=== PATIENT | male | born 1970 | race Caucasian/White ===

== ENCOUNTER → 2018-11-11 | Outpatient (CLI) | payer BC ==
--- NOTE | 2018-11-11 15:18 | XR ---
EXAMINATION TYPE: XR chest 2V DATE OF EXAM: 11/11/2018 COMPARISON: None HISTORY: 47-year-old male presurgical testing TECHNIQUE: Frontal and lateral views FINDINGS: The cardiomediastinal silhouette, aorta, and pulmonary vasculature are within normal limits. Mild hyp erinflation. Lungs and pleural spaces are clear. IMPRESSION: Mild hyperinflation may relate to depth of inspiration or underlying emphysema. No acute cardiopulmon mykel process.
== END | disposition home or self-care (01) ==
LOC: RADXRMAIN 10:16
PROVIDERS: ATTEND Orthopaedic Surgery Orthopaedic Surgery of the Spine
DX: Z01.818 Encounter for other preprocedural examination (principal); R91.8 Other nonspecific abnormal finding of lung field; M48.07 Spinal stenosis, lumbosacral region; Z01.812 Encounter for preprocedural laboratory examination
CPT/HCPCS: 71046; 87070

== ENCOUNTER 2018-11-17 07:28 | Inpatient (IN) | payer BC ==
[~2018-11-17 07:28] MED LIST: BACITRACIN 50,000 UNIT, POLYMYXIN B 500,000 UNIT in SODIUM CHLORIDE 0.9% IRRIGATIO 1,00... IRRIGATION ONE; DEXAMETHASONE SOD PHOSPHATE 10 MG/ML 1 ML VIAL IV ONE; LIDOCAINE 1% 20 ML VIAL (10MG/ML) FOR IV START INTRADERMA PRN; MIDAZOLAM 2 MG/2 ML VIAL IV PRN; ONDANSETRON 4 MG/2 ML VIAL IVP ONE; SCOPOLAMINE 1.5MG/72HR PATCH TRANSDERM ONE; ceFAZolin IN SWFI 2 GM/20 ML SYRINGE IVP ONE
[2018-11-17] MEDS: LACTATED RINGERS 1,000 ML IV SCH (08:02)
[2018-11-17] MEDS ORDERED: MIDAZOLAM 2 MG/2 ML VIAL ONE (08:27)
[2018-11-17] MEDS ORDERED: PROPOFOL 10 MG/ML 20 ML VIAL IV ONE (08:27)
[2018-11-17] MEDS ORDERED: NEOSTIGMINE 1 MG/ML 10 ML VIAL ONE (08:27)
[2018-11-17] MEDS ORDERED: HEPARIN SODIUM,PORCINE 10,000 UNIT/ML 1 ML VIAL ONE (08:27)
[2018-11-17] MEDS ORDERED: ROCURONIUM BROMIDE 10 MG/ML 10 ML VIAL IV ONE (08:27)
[2018-11-17] MEDS ORDERED: GLYCOPYRROLATE 0.2 MG/ML 2 ML VIAL ONE (08:27)
[2018-11-17] MEDS ORDERED: LACTATED RINGERS 1,000 ML BAG IV ONE (08:27)
[2018-11-17] MEDS ORDERED: SUCCINYLCHOLINE CHLORIDE 100 MG/5 ML SYR IV ONE (08:27)
[2018-11-17] MEDS ORDERED: LIDOCAINE 1% INJ 10MG/ML (20 ML MDV) ONE (08:27)
[2018-11-17] MEDS ORDERED: fentaNYL (PF) 50 MCG/ML 2 ML AMP ONE (08:27)
[2018-11-17] MEDS ORDERED: PHENYLEPHRINE-0.9% NACL SYG 1 MG/10 ML SYRINGE ONE (08:27)
[2018-11-17] MEDS ORDERED: LIDOCAINE 0.5%-EPI 1:200,000 50 ML VIAL SQ ONE (09:10)
[2018-11-17] MEDS ORDERED: BACITRACIN 50,000 UNIT, POLYMYXIN B 500,000 UNIT in SODIUM CHLORIDE 0.9% IRRIGATIO 1,00... IRRIGATION ONE (09:24)
[2018-11-17] MEDS ORDERED: GELATIN SPONGE,ABSORB (LARGE) 1 EACH SPONGE TOPICAL ONE (10:09)
[2018-11-17] MEDS ORDERED: THROMBIN (BOVINE) 5,000 UNIT VIAL TOPICAL ONE (10:09)
[2018-11-17] MEDS ORDERED: LACTATED RINGERS 1,000 ML IV ONE (10:33)
--- NOTE | 2018-11-17 12:15 | XR ---
Fluoroscopy History: Lumbar surgery 1 min 40 sec fl time, Lumbar done with Pasia. 6 images scanned
[2018-11-17] MEDS ORDERED: ONDANSETRON 4 MG/2 ML VIAL IVP PRN (12:26)
[2018-11-17] MEDS ORDERED: HYDROcodone/APAP 5-325MG 1 EACH TAB PO PRN ×2 (12:26)
[2018-11-17] MEDS ORDERED: HYDROmorphone 0.5 MG/0.5 ML SYRINGE IVP PRN (12:26)
[2018-11-17] MEDS ORDERED: HYDROmorphone 1 MG/ML 1 ML SYRINGE IVP PRN (12:26)
[2018-11-17] MEDS ORDERED: BENZOCAINE/MENTHOL LOZENG 1 EACH LOZENGE MUCOUS MEM PRN (12:26)
[2018-11-17] MEDS: HYDROmorphone 0.5 MG/0.5 ML SYRINGE IVP PRN ×3 (12:29→12:40)
--- NOTE | 2018-11-17 12:39 | P.OP ---
Date of Procedure: 11/17/18 Preoperative Diagnosis: Spinal stenosis L4 5 L5-S1, retrolisthesis L5-S1, disc herniation L5-S1 L4 5, lower sternal radiculopathy, low back pain and degenerative disc disease L4 5 L5-S1 Postoperative Diagnosis: Same Anesthesia: GETA Pathology: none sent Condition: stable Disposition: PACU Description of Procedure: DESCRIPTION OF PROCEDURE(S): BRIEF OPERATIVE NOTE Preoperative Diagnosis: Spinal stenosis L4 5 L5-S1, retrolisthesis L5-S1, disc herniation L5-S1 L4 5, lower sternal radiculopathy, low back pain and degenerative disc disease L4 5 L5-S1 Postoperative Diagnosis: Same Procedure: Laminectomy and decompressionL4 5 L5-S1 Minimally invasive Posterior lateral decompression and fusionL4 5 L5-S1 Minimally invasive Transforaminal lumbar interbody fusion for a 360 fusionL4 5 L5-S1 Discectomy for decompressionL4 5 L5-S1 Placement of interbody graftL4 5 L5-S1 Local autogenous bone grafting Harvesting of bone marrow aspirate be of the pedicle of L4 Use of Cell Saver Use of bone graft extenders Surgeon: Dr. Boone Manager Heavy Duty: Vivek Sung is present throughout the entire the case persistence during positioning, dissection, exposure, visualization, and all crucial elements of the case as well as closure. Anesthesia: General anesthesia per Dr. Pimentel Estimated blood loss: Approximately 100 mL Complications: None apparent Components implanted:K2M minimally invasive [place] pedicle screw system with 6.5 mm screws 2 rods and 1 [place] expandable 9-12 cage and 1 [place] titanium cage with 1 osteoamp sponge and 30 mL DBX bone fibers to supplemental local autogenous and bone marrow aspirate graft Disposition: To recovery room in good stable condition. OPERATIVE INDICATIONS The patient has had long-standing issues in their lower back and lower extremities. He has had long history of low back pain with lower extremity radicular symptoms. He has been through extensive conservative treatment over the years. He has been involved with pain management as well. He was having worsening of his back pain and his lower extremity radiculopathy was having some evidence of dynamic retrolisthesis at L5-S1 with significant disc degeneration and stenosis L4 5 and L5-S1. The symptoms correlated well with the findings and we discussed further treatment including surgical options. The patient has been through conservative treatment. We discussed various treatment options including surgery, and the patient wishes to proceed with surgery We discussed the risk, patient's alternatives and benefits of surgery including but not limited to, risk of bleeding risk of infection, risk of need for further surgery, risk of decreased, loss of motion, muscle function, malunion nonunion, hardware failure, nerve damage, paralysis, heart attack, blindness and . OPERATIVE SUMMARY After discussing all the risks, patient alternatives and benefits at length, the patient elected to proceed with surgical intervention, signed informed consent, and presented for their procedure. The patient was seen and examined in the preoperative holding area and the surgical site was marked. The patient was given antibiotics and brought to the operating room. The patient was sedated and intubated by anesthesia in standard fashion. The patient was positioned on to the operating room table in a prone position on the appropriate frame which was well-padded and well molded. We were careful to pad any bony prominences and pressure points. We were careful to maintain the patient's cervical spine and good neutral alignment and position throughout. The patient was prepped and draped in a normal standard fashion. An appropriate timeout and keystone protocol performed. We were able to proceed with the surgery. The local wound area was infiltrated with local anesthetic bilaterally from L 4 to S1. I was able utilize C-arm guidance to establish appropriate position over the pedicles bilaterally at the appropriate levels at L4 5 L5-S1. With the appropriate levels confirmed was able to make small stab incisions over the appropriate pedicle sites bilaterally. Utilizing C-arm in his house able to establish a Jamshidi needle over the lateral aspect of the pedicle and advanced the trocar into the pedicle being careful not to breech superiorly inferiorly medially or laterally. Position was confirmed regularly with AP and lateral images on C-arm. I was able to establish the trocar into the pedicle appropriately into the posterior aspect of the vertebral body bilaterally at the appropriate levels at L4 5 L5-S1. This was done at each of the pedicle positions and each of the vertebrae. At L4 on the right I did take a bone marrow aspirate approximately 20 mL to be used for the grafting. I was able place the guidewire into the trocar and into the vertebral body appropriately under C-arm guidance. Dissection was taken down over the wire to the appropriate starting position for the screw placed. The appropriate length screw was chosen, threaded over the guidewire and screwed appropriately into the pedicle and vertebral body under C-arm guidance in excellent alignment and position with good bony purchase. This is done at each of the screw sites at the appropriate levels at L4 5 and S1. With the screws intact I extended the incision to connect the screw hole sites on the most symptomatic side on the right. I dissected down to establish access over the pars and lamina to the base of the spinous process. I was able to expose the facet joint. The capsule the facet was taken down and showed some facet arthrosis at the joint. I was able to use a combination of curettes and Kerrison rongeurs and a high-speed drill to take down the facet joint and do a facetectomy. Partial laminectomy was also performed. I was able get excellent foraminal decompression and central decompression with undermining across midline to perform a laminectomy centrally and contralaterally. As able get good central decompression. The ligamentum flavum was taken down to further decompress centrally and at bilateral neural foramen. I was able to expose the disc space and visualize the traversing nerve root. Note was made of some disc protrusion at the level causing further compression of the nerve root. I was able to establish a annulotomy at the appropriate level protecting soft tissue and neural structures. Note was made of some disc desiccation at the disc. I performed a complete discectomy with accommodation of curettes and rasps and scrapers. The discectomy provided endplate preparation as well as further decompression. I was able get good endplate preparation at the disc space. I sized for the appropriate size interbody spacer protecting the soft tissue and neural structures. The wound was copiously irrigated and suctioned dry. There is no evidence of any dural tear or leak. This is done first at L5-S1 and then at L4 5 I was able to pack the disc space with local autogenous bone graft as well as a small amount of bone graft which was also placed into the interbody cage itself. Protecting the soft tissue structures and neural structures I was able place the interbody cage in good alignment and good position with good fit and fill at the interbody space at L5-S1 and at L4 5. His issues was confirmed with C-arm guidance. At L5-S1 I was able to use a 1 piece titanium interbody spacer. Then L4 5 he had a larger disc height and I chose to use a expandable cage for good fit and fill within the interbody space. Good hemostasis maintained. There is no evidence of any dural tear or leak. The wound was irrigated and suctioned dry. With the hardware intact, intraoperative C-arm imaging was again taken which showed good alignment and position of the hardware at the appropriate levels. We were then able to measure, contour and place the rods and appropriate hardware bilaterally. I was able to place capcrews, tighten them down, and torque them with the torque screwdriver appropriately. With this intact I was able to place the local autogenous bone graft with additional bone graft enhancer as necessary into the posterior lateral gutters over the decorticated transverse processes. The remainder of the bone graft was placed over the facet joint on the contralateral side after taking down the facet joint capsule at L4 5 and L5-S1. With the bone graft intact, a stable construct, and good decompression at the appropriate levels, we were able to proceed with closure. Good hemostasis was maintained. There is no evidence of dural tear or leak. The fascia was closed for a watertight closure. he subcuticular tissue was closed with absorbable suture. The wound was cleaned and dried and dressed with the appropriate dressing. The drapes were broken down. The patient was gently rolled back onto their hospital bed being careful to maintain their cervical spine and good neutral alignment and position. They were woken up by anesthesia, extubated, and brought to the recovery room in good stable condition. The patient will be admitted to the hospital for appropriate postoperative care, medical management and monitoring. We will continue to follow them closely about the postoperative course.
[2018-11-17] MEDS: fentaNYL (PF) 50 MCG/ML 2 ML AMP IVP ONE ×2 (13:12→13:15)
[2018-11-17] MEDS: MORPHINE SULFATE ER 30 MG TABLET PO PRN (14:23)
[2018-11-17] MEDS ORDERED: HYDROmorphone 1 MG/ML 1 ML SYRINGE IVP STA (14:57)
[2018-11-17] MEDS: DIAZEPAM 5 MG TAB PO PRN ×2 (15:06→21:37)
[2018-11-17] MEDS: ceFAZolin IN SWFI 2 GM/20 ML SYRINGE IVP SCH ×2 (15:08→23:38)
[2018-11-17] MEDS ORDERED: cloNIDine HCL 0.1 MG TAB PO PRN (15:57)
--- NOTE | 2018-11-17 17:21 | CONS ---
CONSULTATION DATE OF SERVICE: 11/17/2018 REASON FOR CONSULTATION: Advice regarding hypertension and other medical issues, requested by Dr. Boone. HISTORY OF PRESENT ILLNESS: This 47-year-old gentleman with a past medical history of hypertension, back pain, history of hernia repair, cervical fusion, being followed by Vanna Koch in the outpatient setting, underwent laminectomy and decompression of L4-5, L5-S1 and multiple other procedures by Dr. Boone. Postoperatively the patient is complaining of severe pain. There is no history of any fever, rigor or chills. No history of headache, loss of consciousness, seizures. The blood pressure was also elevated at 172/113. PAST MEDICAL HISTORY: 1. History of hypertension. 2. History of DJD. 3. History of cervical fusion x2. HOME MEDICATIONS: 1. Requip 5 mg p.o. at bedtime. 2. MS Contin 30 mg q.8 p.r.n. 3. Zestril 10 mg p.o. daily. 4. Motrin 600 mg daily p.r.n. ALLERGIES: NONE. FAMILY HISTORY: Ovarian cancer in the family. SOCIAL HISTORY: History of smoking. No history of alcohol intake. REVIEW OF SYSTEMS: ENT: No diminished hearing. No diminished vision. CARDIOVASCULAR SYSTEM: No angina, palpitations. RESPIRATORY SYSTEM: No cough, hemoptysis. GI: No nausea, vomiting. : No dysuria or retention. NERVOUS SYSTEM: No numbness, weakness. ALLERGY/IMMUNOLOGY: No asthma, hayfever. MUSCULOSKELETAL: As mentioned earlier. HEMATOLOGY/ONCOLOGY: No history of anemia. ENDOCRINE: No history of diabetes, hypothyroidism. CONSTITUTIONAL: As mentioned earlier. DERMATOLOGY: Negative. RHEUMATOLOGY: Negative. PSYCHIATRY: As mentioned earlier. PHYSICAL EXAMINATION: Patient is alert and oriented x3. Pulse 62, blood pressure 131/79, respiration 12, temperature 98 degrees, pulse ox 100% on room air. HEENT: Conjunctivae normal. Oral mucosa moist. NECK: No jugular venous distention. No carotid bruit. No lymph node enlargement. CARDIOVASCULAR SYSTEM: S1, S2 muffled. RESPIRATORY SYSTEM: Breath sounds diminished at the bases. No rhonchi. No crackles. ABDOMEN: Soft, non-tender. No mass palpable. LEGS: No edema. No swelling. NERVOUS SYSTEM: Higher functions as mentioned earlier. Moves all 4 limbs. No focal motor or sensory deficit. BACK: Status post surgery. SKIN: No ulcer, rash, bleeding. JOINTS: No active deforming arthropathy. LABS: Not available. ASSESSMENT: 1. Status post laminectomy and decompression of L4-5, L5-S1 for spinal stenosis, L4-5, L5-S1, and retrolisthesis, L5-S1, and disc herniation. 2. Hypertension. 3. History of back pain, degenerative joint disease. 4. History of cervical fusion. 5. History of umbilical hernia. 6. History of nicotine dependence. RECOMMENDATIONS AND DISCUSSION: In this 47-year-old gentleman who presented with multiple medical issues, I would recommend continuing the current medication. Continue symptomatic treatment. Pain management. DVT prophylaxis. Incentive spirometry. I would also recommend p.r.n. medication for blood pressure control. Lisinopril may be continued. We will follow the patient closely with you. Baseline labs are also ordered. Thank you, Dr. Boone, for letting us participate in the care of this patient. MMODL / IJN: [id number] /
[2018-11-17] MEDS: HYDROmorphone 1 MG/ML 1 ML SYRINGE IVP PRN ×2 (18:20→21:37)
[2018-11-17] MEDS: SODIUM CHLORIDE 0.9% 1,000 ML IV SCH ×2 (18:27→23:38)
[2018-11-17] MEDS ORDERED: CALCIUM CARBONATE 500 MG CHEWABLE PO PRN (23:02)
[2018-11-18] MEDS: HYDROmorphone 1 MG/ML 1 ML SYRINGE IVP PRN ×3 (00:40→18:24)
[2018-11-18] MEDS: MORPHINE SULFATE ER 30 MG TABLET PO PRN (02:28)
[2018-11-18] MEDS: DIAZEPAM 5 MG TAB PO PRN (02:28)
[2018-11-18] MEDS ORDERED: HYDROmorphone 1 MG/ML 1 ML SYRINGE IVP PRN (02:49)
[2018-11-18] MEDS: KETOROLAC 30 MG/ML 1 ML VIAL IVP PRN ×4 (03:04→20:03)
[2018-11-18] MEDS: LACTATED RINGERS 1,000 ML IV SCH (04:56)
--- NOTE | 2018-11-18 08:22 | P.PN ---
Progress Note - Text Progress Note Date: 11/18/18 Postoperative day #1 Patient is seen and examined today at bedside. The patient has some pain around the surgical site as expected. He was also having pain down both legs with severe spasms overnight. He says that this resolved well with a dose of Toradol. Pain is being controlled with medication. He does take chronic opioid pain medications managed through his pain management center and this may be treating to some other issues with his pain as well. He has been able to void. He denies any nausea or vomiting. Denies any fevers. Physical Exam Afebrile with stable vital signs Abdomen is soft nontender. Chest has good excursion deep and space expiration The incision site is clean dry and intact. No erythema there is no purulence. Extremities have not had neurologic change from prior to surgery. He has sustained dorsal flexion plantar flexion and EHL intact. Calves and thighs were soft nontender without evidence of DVT. Assessment/Plan Postoperative day #1 status post minimally invasive decompression and fusion L4 5 and L5-S1 for his spinal stenosis with retrolisthesis and degenerative disc disease and lower extremity radiculopathy Patient is progressing as expected from the surgery. This morning he is making some progress in terms of his pain and control of his spasm in his lower extremities. He feels that the Toradol helped him significantly. I discussed with him the idea that her all would only be temporary as this can inhibit some of the bony growth if used long-term. He understands. We will continue to pain control with IV and oral medication. Hopefully we'll be able to wean him back to his regular pain medication regimen We will continue to increase the patient's mobilization with therapy. We will continue pain control with oral or IV medications. We'll continue to follow patient closely.
[2018-11-18] MEDS: SENNOSIDES-DOCUSATE SODIUM 1 EACH TAB PO SCH (08:32)
[2018-11-18] MEDS: LISINOPRIL 10 MG TAB PO SCH (08:32)
[2018-11-18 09:48] LABS: Basophils % (A) 0 %; Eosinophils % (A) 0 %; HCT 39.1 % (39.0-53.0); HGB 13.2 gm/dL (13.0-17.5); Lymphocytes # (A) 1.5 k/uL (1.0-4.8); Lymphocytes % (A) 11 %; MCH 31.7 pg (25.0-35.0); MCHC 33.8 g/dL (31.0-37.0); MCV 93.8 fL (80.0-100.0); Mean Platelet Volume 6.2; Monocytes # (A) 0.9 k/uL (0-1.0); Monocytes % (A) 7 %; Neutrophils # (A) 10.5 k/uL (1.3-7.7); Neutrophils % (A) 80 %; Platelet Count 277 k/uL (150-450); RBC 4.17 m/uL (4.30-5.90); RDW 12.1 % (11.5-15.5); WBC 13.2 k/uL (3.8-10.6)
[2018-11-18 09:56] LABS: Anion Gap 5 mmol/L; Blood Urea Nitrogen 14 mg/dL (9-20); Calcium 8.9 mg/dL (8.4-10.2); Carbon Dioxide 30 mmol/L (22-30); Chloride 98 mmol/L (98-107); Glucose 98 mg/dL (74-99); Potassium 4.5 mmol/L (3.5-5.1); Sodium 133 mmol/L (137-145)
[2018-11-18 13:59] VITALS: BMI 23.7
[2018-11-18] MEDS: SODIUM CHLORIDE 0.9% 1,000 ML IV SCH (14:42)
--- NOTE | 2018-11-18 20:36 | PN ---
PROGRESS NOTE DATE OF SERVICE: 11/18/2018 This 47-year-old gentleman was admitted after laminectomy and back surgery is being closely monitored. The patient had severe back pain yesterday which is improved with analgesics as well as Toradol. Dr. Boone is following the patient closely. No chest pain. No palpitations. No fever. EXAM: GENERAL: Alert and oriented x3. VITAL SIGNS: Pulse is 87. Blood pressure ntd, respiration 16, temperature is 98.4, pulse ox 97% on room air. HEENT: Conjunctivae muffled. NECK: No jugular venous distention. CARDIOVASCULAR: S1, S2. RESPIRATIONS: Breath sounds diminished in the bases. Bilateral scattered rhonchi. No crackles. ABDOMEN is soft, nontender. CENTRAL NERVOUS SYSTEM: No focal deficits. BACK: Status post surgery. LABS: WBC 13.2. ASSESSMENT: 1. Status post laminectomy with decompression L4-5, L5-S1 with spinal stenosis, L4-5, L5-S1 and retrolithiasis, L5-S1 and disc herniation. 2. Hypertension. 3. Possible bronchitis. 4. History of back pain. 5. Degenerative joint disease. 6. History of cervical fusion. 7. History of umbilical hernia. 8. History of nicotine dependence. RECOMMENDATIONS AND DISCUSSION: Continue current medications, management and symptomatic treatment. Otherwise, I would also recommend a course of bronchodilators, DVT prophylaxis and continue to monitor. Otherwise continue the pain medications. Further recommendations per Orthopedic Surgery. Incentive spirometry. DVT prophylaxis. MMODL / IJN: [id number] / MTDD
[2018-11-18] MEDS: IPRATROPIUM-ALBUTEROL 3 ML NEB INHALATION SCH (22:21)
[2018-11-19] MEDS: MORPHINE SULFATE ER 30 MG TABLET PO PRN ×2 (01:13→09:19)
[2018-11-19] MEDS: KETOROLAC 30 MG/ML 1 ML VIAL IVP PRN ×3 (01:13→13:17)
[2018-11-19] MEDS: LACTATED RINGERS 1,000 ML IV SCH (05:30)
[2018-11-19] MEDS: SODIUM CHLORIDE 0.9% 1,000 ML IV SCH (05:30)
[2018-11-19] MEDS: IPRATROPIUM-ALBUTEROL 3 ML NEB INHALATION SCH (07:54)
--- NOTE | 2018-11-19 08:45 | P.DS ---
Providers Date of admission: 11/17/18 07:28 Expected date of discharge: 11/19/18 Attending physician: Bear Boone Consults: 11/17/18 12:26 Consult Physician Routine Consulting Provider: Osmin Esquivel Consult Reason/Comments: Medical management Do you want consulting provider notified?: Yes Primary care physician: Vnana Koch - Discharge Diagnosis(es) (1) Spondylolisthesis at L5-S1 level Current Visit: Yes Status: Acute (2) Low back pain Current Visit: Yes Status: Acute (3) Radiculopathy with lower extremity symptoms Current Visit: Yes Status: Acute (4) Lumbar degenerative disc disease Current Visit: Yes Status: Acute (5) Status post lumbar spinal fusion Current Visit: Yes Status: Acute (6) Spinal stenosis at L4-L5 level Current Visit: Yes Status: Acute (7) Spinal stenosis of sacral region Current Visit: Yes Status: Acute Hospital Course: This is a pleasant 47-year-old male who presented with L4-5 and L5-S1 herniated nucleus pulposus, degenerative disc disease, and spinal canal stenosis with low back pain, lower extremity radiculopathy, and L5-S1 retrolisthesis who failed outpatient conservative therapy. He was admitted for an L4-5 and L5-S1 minimally invasive posterior lateral decompression and fusion with transforaminal lumbar interbody fusion. The patient tolerated the procedure well and did well postoperatively. He initially was having some difficulty with pain control over the first day but his symptoms have been much better controlled after receiving some Torodol. He feels his pain is adequately controlled and he like to be discharged home today. He is not currently experiencing specific lower extremity radiculopathy or weakness bilaterally. He does experience some muscle spasm bilaterally lower extremities. His back pain continues to be present at the surgical sites but is controlled Condition on day of discharge stable. Patient will be discharged home. Patient was cleared preoperatively for surgery by Dr. Koch. Patient currently denies any nausea, vomiting, fever, or chills. Patient is eating and voiding freely without difficulty. Patient may shower Tegaderm dressing intact. Patient may remove Tegaderm dressing in 3 days and shower without a dressing at that time. Patient should keep Steri- Strips intact and allow them to fall off naturally. Patient should refrain from driving until at least after their first follow-up appointment in the office. Patient should avoid excessive bending, lifting, and twisting; no lifting greater than 10 pounds. Patient is known to take MS Contin in the outpatient setting as prescribed by his pain management provider. Will not prescribe narcotic medications at discharge. He may continue to take MS Contin as previous he prescribed as needed for relief of his symptoms. He will be given a prescription for Flexeril 10 mg take 1 tab every 8 hours as needed for spasm, dispensed #60. Patient should avoid anti-inflammatory medications over the next 6 weeks postoperatively. Physical Exam on day of discharge: Patient is awake, alert, and oriented 3 Vital signs stable Good chest excursion with deep inspiration and expiration Abdomen soft nontender No signs or symptoms of DVT; no calf pain Extensor hallucis longus, plantarflexion, and dorsiflexion positive sustained bilateral lower extremities Incision is clean, dry, and intact; no erythema, purulence, or signs of infection Tegaderm dressing and non-stick Telfa intact Procedures: L4-5 and L5-S1 minimally invasive posterior lateral decompression and fusion with transforaminal lumbar interbody fusion Patient Condition at Discharge: Stable Plan - Discharge Summary Discharge Rx Participant: Yes New Discharge Prescriptions: New Cyclobenzaprine [Flexeril] 10 mg PO TID PRN #60 tab PRN Reason: Muscle Spasm No Action Morphine Sulfate [Ms Contin] 30 mg PO Q8HR PRN PRN Reason: Pain Lisinopril [Zestril] 10 mg PO DAILY rOPINIRole HCL [Requip] 5 mg PO HS Ibuprofen [Motrin Ib] 600 mg PO DAILY PRN PRN Reason: Pain Discharge Medication List Ibuprofen [Motrin Ib] 600 mg PO DAILY PRN 11/10/18 [History] Lisinopril [Zestril] 10 mg PO DAILY 11/10/18 [History] Morphine Sulfate [Ms Contin] 30 mg PO Q8HR PRN 11/10/18 [History] rOPINIRole HCL [Requip] 5 mg PO HS 11/10/18 [History] Cyclobenzaprine [Flexeril] 10 mg PO TID PRN #60 tab 11/19/18 [Rx] Follow up Appointment(s)/Referral(s): Vivek Benitez, PATRICIA [PHYSICIAN REGIONAL FACILITIES MANAGER] - 2 Weeks (Patient may follow-up with Vivek Benitez PA-C or Dr. Oskar Boone at [facility] in 2-3 weeks following discharge. ) Patient Instructions/Handouts: Lumbar Spinal Fusion (DC) Activity/Diet/Wound Care/Special Instructions: 1. Patient may shower with Tegaderm dressing intact. 2. Patient may remove Tegaderm dressing in 3 days and shower without a dressing at that time. 3. Patient should keep Steri-Strips intact and allow them to fall off naturally. 4. Patient should refrain from driving until at least after their first follow- up appointment in the office. 5. Patient should avoid excessive bending, twisting, and lifting; no lifting greater than 10 pounds 6. Take medications as prescribed 7. Do not soak in tub Discharge Disposition: HOME SELF-CARE
[2018-11-19] MEDS: SENNOSIDES-DOCUSATE SODIUM 1 EACH TAB PO SCH (09:20)
[2018-11-19] MEDS: LISINOPRIL 10 MG TAB PO SCH (09:20)
[2018-11-19 09:25] VITALS: BP 147/86; PULSE 78; RESP 12; TEMP 98
--- NOTE | 2018-11-19 13:45 | P.PN ---
Subjective Progress Note Date: 11/19/18 Principal diagnosis: Status post laminectomy with decompression at level [place]-5 and L5-S1 Hypertension Objective - Vital Signs Vital signs: Vital Signs Temp 98 F 11/19/18 07:00 Pulse 78 11/19/18 07:00 Resp 12 11/19/18 07:00 BP 147/86 11/19/18 07:00 Pulse Ox 100 11/19/18 07:00 Intake & Output 11/18/18 11/19/18 11/19/18 18:59 06:59 18:59 Intake Total 1080 Balance 1080 Weight 77.111 kg Intake: IV 600 Sodium Chloride 0.9% 1, 600 000 ml @ 75 mls/hr IV . [id number] [facility] Rx#:[id number] Oral 480 Other: Voiding Method Urinal - Exam - Constitutional General appearance: Present: average body habitus, cooperative, no acute distress - EENT Eyes: Present: anicteric sclerae, EOMI, PERRLA, normal appearance ENT: Present: hearing grossly normal, normal oropharynx Ears: bilateral: normal - Neck Neck: Present: normal ROM. Absent: lymphadenopathy, rigidity, thyromegaly Carotids: negative: bruit present Thyroid: bilateral: normal size, negative: enlarged, nodule - Respiratory Respiratory: bilateral: CTA, negative: rales, rhonchi, wheezing - Cardiovascular Rhythm: regular Heart sounds: normal: S1, S2 Abnormal Heart Sounds: Absent: systolic murmur, diastolic murmur - Gastrointestinal General gastrointestinal: Present: normal bowel sounds, soft. Absent: distended, organomegaly, tenderness - Genitourinary Genitourinary Comment(s): deferred - Integumentary Integumentary: Present: normal turgor. Absent: jaundiced, rash, ulcer - Neurologic Neurologic: Present: CNII-XII intact. Absent: focal deficits - Musculoskeletal Musculoskeletal: Present: gait normal, strength equal bilaterally - Psychiatric Psychiatric: Present: A&O x's 3, appropriate affect, intact judgment & insight - Labs CBC & Chem 7: 11/18/18 09:03 11/18/18 09:03 Assessment and Plan Assessment: 1. Spinal stenosisdisc herniation; status post laminectomy with decompression; orthopedic surgery following 2. Hypertension; stable on current home medications 3. Possible bronchitis; stable on nebulizer treatments 4. Chronic back pain/DJD; clinically stable Patient will be continued on current medications and symptomatic treatment; plan is to continue with DVT prophylaxis and pain medications as recommended by ort hopedic surgery; continue with incentive spirometry; discharge planning per orthopedic service Time with Patient: Greater than 30
== END 2018-11-19 13:39 | disposition home or self-care (01) | DRG 455 ==
LOC: 2ORMAIN 07:28 → 4SSUR 13:42
PROVIDERS: ADMIT Orthopaedic Surgery Orthopaedic Surgery of the Spine; ATTEND Orthopaedic Surgery Orthopaedic Surgery of the Spine
PROC: 0SG00AJ Fusion of Lumbar Vertebral Joint with Interbody Fusion Device, Posterior Approach, Anterior Column, Open Approach (ICD-10-PCS; 2018-11-17)
PROC: 0SG3071 Fusion of Lumbosacral Joint with Autologous Tissue Substitute, Posterior Approach, Posterior Column, Open Approach (ICD-10-PCS; 2018-11-17)
PROC: 0SG30AJ Fusion of Lumbosacral Joint with Interbody Fusion Device, Posterior Approach, Anterior Column, Open Approach (ICD-10-PCS; 2018-11-17)
PROC: 0ST20ZZ Resection of Lumbar Vertebral Disc, Open Approach (ICD-10-PCS; 2018-11-17)
PROC: 0ST40ZZ Resection of Lumbosacral Disc, Open Approach (ICD-10-PCS; 2018-11-17)
PROC: 0SG0071 Fusion of Lumbar Vertebral Joint with Autologous Tissue Substitute, Posterior Approach, Posterior Column, Open Approach (ICD-10-PCS; principal; 2018-11-17 08:30)
DX: M48.07 Spinal stenosis, lumbosacral region (principal); M48.061 Spinal stenosis, lumbar region without neurogenic claudication; M51.16 Intervertebral disc disorders with radiculopathy, lumbar region; M51.17 Intervertebral disc disorders with radiculopathy, lumbosacral region; M43.17 Spondylolisthesis, lumbosacral region; I10 Essential (primary) hypertension; M19.90 Unspecified osteoarthritis, unspecified site; F17.210 Nicotine dependence, cigarettes, uncomplicated; J40 Bronchitis, not specified as acute or chronic; M62.838 Other muscle spasm; Z79.899 Other long term (current) drug therapy; Z98.1 Arthrodesis status
CPT/HCPCS: 72100; 80048; 85025; 86850; 86891; 86900; 86901